=== PATIENT | male | born 1950 | race Caucasian/White ===

== ENCOUNTER 2017-01-06 20:24 | Emergency (ER) | payer MEDICARE, MEDICAID ==
[~2017-01-06] VITALS: Wt 114.5 kg
[~2017-01-06 20:24] MED LIST: AMLO-145 PO; ANUHCSUP PR; CLON0.5T4 PO; COU75 PO; DOCU-103 PO; FLUT1AER IH; PANT40TA3 PO; RISP1TAB3 PO; SIMV20TA2 PO
--- NOTE | 2017-01-06 22:17 | ERA ---
ER Documentation Chief Complaint Date/Time DATE: 01/06/17 TIME: 22:17 Chief Complaint Abdominal pain HPI The patient is a 66-year-old male, presenting to the ER because of diffuse abdominal pain that began about 3 PM today after smoking. The abdominal pain diffuse, no aggravating or relieving factor, not associated with diarrhea, constipation, dysuria. He denies fever, chills, neck pain, chest pain, dyspnea. He smokes, denies drinking, denies illicit drug Past medical history: Asthma, hypertension, schizophrenia, history of DVT, dyslipidemia Past surgical history: Bilateral lower extremity, details unclear ROS All systems reviewed and are negative except as per history of present illness. Medications Home Meds Active Scripts Ibuprofen* (Motrin*) 600 Mg Tab, 600 MG PO Q6H Y for PAIN AND OR ELEVATED TEMP, #30 TAB Prov:MILLIE SIMS MD 01/07/17 Reported Medications Omeprazole* (Omeprazole*) 20 Mg Capsule.dr, 20 MG PO DAILY, #30 CAP 01/07/17 Ergocalciferol (Vitamin D2) (VITAMIN D2) 50,000 Unit Capsule, 85791 UNIT PO, CAP 01/07/17 Amlodipine Besylate* (Amlodipine Besylate*) 5 Mg Tablet, 5 MG PO DAILY, TAB 08/30/14 Warfarin Sodium (Coumadin) 7.5 Mg Tablet, 7.5 MG PO DAILY, TAB 08/30/14 Docusate Sodium (Docusil) 100 Mg Capsule, 100 MG PO TID 08/30/14 Hydrocortisone* Rectal (Anucort-HC* Supp) 25 Mg Supp, 25 MG ND BID, SUPP 08/30/14 Clonazepam* (Clonazepam*) 0.5 Mg Tablet, 0.5 MG PO AM, TAB 08/30/14 Risperidone* (Risperidone*) 1 Mg Tablet, 1 MG PO BID, TAB 08/30/14 Simvastatin (Simvastatin) 20 Mg Tablet, 20 MG PO DAILY, TAB 08/30/14 Discontinued Reported Medications Fluticasone-Vilanterol (Breo Ellipta Inhaler) 100-25 Mcg/Actuation Aer.pow.ba, 1 PUFF IH DAILY, EA 08/30/14 Pantoprazole* (Protonix*) 40 Mg Tablet.dr, 40 MG PO DAILY, TAB 08/30/14 Allergies Allergies: Coded Allergies: haloperidol (Unverified Allergy, Intermediate, 01/07/17) Cephalexin Monohydrate (Unverified Allergy, Unknown, 01/07/17) furosemide (Unverified Allergy, Unknown, 01/07/17) hydrocodone bit (Unverified Allergy, Unknown, 01/07/17) ketorolac tromethamine (Unverified Allergy, Unknown, 01/07/17) meperidine HCl (Unverified Allergy, Unknown, 01/07/17) vancomycin (Unverified Allergy, Unknown, 01/07/17) Haloperidol Lactate (Unverified Adverse Reaction, Intermediate, 01/07/17) PMhx/Soc History of Surgery: No Anesthesia Reaction: No Hx Neurological Disorder: No Hx Respiratory Disorders: Yes (BRONCHIAL ASTHMA) Hx Cardiac Disorders: Yes (HTN,DVT,PE) Hx Psychiatric Problems: Yes (PARANOID,SCHIZOPHRENIA,PSYCHIATRIC DISORDER) Hx Miscellaneous Medical Probl: No Hx Alcohol Use: No Hx Substance Use: No Hx Tobacco Use: No Physical Exam Vitals Vital Signs Date Time Temp Pulse Resp B/P Pulse Ox O2 Delivery O2 Flow Rate FiO2 01/07/17 00:00 99.7 52 24 160/96 98 Room Air 01/06/17 21:48 99.7 70 24 142/76 96 Room Air 01/06/17 20:47 99.7 90 24 167/90 96 Physical Exam Const: No acute distress. Head: Atraumatic. Eyes: Normal Conjunctiva. ENT: Normal External Ears, Nose and Mouth. Neck: Full range of motion. No meningismus. Resp: Clear to auscultation bilaterally. Cardio: Regular rate and rhythm. Abd: Soft, non distended, normal bowel sounds, minimal vague and diffuse abdominal discomfort, no rigidity, rebound, CVA tenderness Skin: No petechiae or rashes. Back: No midline or flank tenderness. Ext: No calf tenderness, chronic discoloration Neur: Awake and alert. No focal deficit Psych: Normal Mood and Affect. Result Diagram: 01/06/17220901/06/172209 Results 24 hrs Laboratory Tests Test 01/06/17 22:10 01/06/17 23:23 White Blood Count 10.710^3/ul Red Blood Count 4.9810^6/ul Hemoglobin 14.7g/dl Hematocrit 42.2% Mean Corpuscular Volume 84.7fl Mean Corpuscular Hemoglobin 29.5pg Mean Corpuscular Hemoglobin Concent 34.8g/dl Red Cell Distribution Width 13.4% Platelet Count 97014^3/UL Mean Platelet Volume 10.5fl Neutrophils % 79.0% Lymphocytes % 12.8% Monocytes % 6.4% Eosinophils % 0.9% Basophils % 0.3% Nucleated Red Blood Cells % 0.0/100WBC Neutrophils # 8.410^3/ul Lymphocytes # 1.410^3/ul Monocytes # 0.710^3/ul Eosinophils # 0.110^3/ul Basophils # 0.010^3/ul Nucleated Red Blood Cells # 0.010^3/ul Sodium Level 145mmol/L Potassium Level 4.2mmol/L Chloride Level 102mmol/L Carbon Dioxide Level 24mmol/L Anion Gap 23 Blood Urea Nitrogen 21mg/dl Creatinine 1.08mg/dl Glucose Level 113mg/dl Calcium Level 10.5mg/dl Total Bilirubin 0.2mg/dl Direct Bilirubin 0.00mg/dl Indirect Bilirubin 0.2mg/dl Aspartate Amino Transf (AST/SGOT) 30IU/L Alanine Aminotransferase (ALT/SGPT) 44IU/L Alkaline Phosphatase 64IU/L Total Protein 8.4g/dl Albumin 4.7g/dl Globulin 3.70g/dl Albumin/Globulin Ratio 1.27 Lipase 87U/L Bedside Urine pH (LAB) 7.0 Bedside Urine Protein (LAB) Negative Bedside Urine Glucose (UA) Negative Bedside Urine Ketones (LAB) Negative Bedside Urine Blood Trace-intact Bedside Urine Nitrite (LAB) Negative Bedside Urine Leukocyte Esterase (L Negative Current Medications Medications (Trade) Dose Ordered Sig/Eric Route PRN Reason Start Time Stop Time Status Last Admin Dose Admin Morphine Sulfate (morphine) 2 mg ONCE ONCE IV 01/07/17 00:00 01/07/17 00:01 DC 01/06/17 23:57 Ondansetron HCl (Zofran Inj) 4 mg ONCE STAT IV 01/06/17 23:44 01/06/17 23:47 DC 01/06/17 23:57 Morphine Sulfate (morphine) 2 mg ONCE ONCE IM 01/07/17 02:00 01/07/17 02:01 Procedures/[place] [id number] Radiology Main Line: [phone] DIAGNOSTIC IMAGING REPORT Patient: ISABEL SHARMA : 1950 Age: 66 Sex: M [id number] DOS: 01/06/17 2235 Ordering MD: MILLIE SIMS MD Location: E/R Room/Bed: PROCEDURE: CT abdomen and pelvis without intravenous contrast. CLINICAL INDICATION: Pain. TECHNIQUE: CT of the abdomen/pelvis was performed utilizing axial images with reconstructions in sagittal and coronal planes. The administered radiation dose is CTDI 21.6 mGy, DLP 1392 mGy-cm. COMPARISON: No pertinent prior examinations were submitted for comparison. FINDINGS: Visualized Chest: There is minimal atelectasis at the lung bases. There is mild cardiomegaly. Coronary artery calcifications are noted. Abdomen: The liver, spleen, pancreas, gallbladder,and adrenal glands are unremarkable. The kidneys are without hydronephrosis. No definite urinary calculi are seen. There is no evidence of bowel obstruction. The appendix is normal. No intra- abdominal free air is seen. Numerous diverticula are noted throughout the colon without evidence of diverticulitis. An inferior vena cava filter is noted. Numerous varices are noted within the anterior abdominal wall, likely due to chronic DVT. The left iliac vein is small in caliber and presumably chronically thrombosed. There is no evidence of intra-abdominal adenopathy or free fluid. Vascular calcifications are noted within the aorta and its branches. Pelvis: There is no evidence of pelvic adenopathy or free fluid. The prostate and bladder are unremarkable. Small bilateral fat containing inguinal hernias are noted. Osseous structures: Unremarkable. IMPRESSION: No acute findings. Colonic diverticulosis. 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 An inferior vena cava filter is in place. Small, bilateral fat containing inguinal hernias. RPTAT: HIKT .Hussein Chamorro MD, Date Time Electronically viewed and signed by .Hussein Chamorro MD, on 01/07/2017 00:57 .T/ CC: MILLIE SIMS MD MEDICAL MAKING DECISION: The patient is a 66-year-old male, presenting to the ER because of acute abdominal pain after smoking of unclear etiology. He has no abdominal tenderness on examination. He was treated with morphine 2 mg IV for pain and Zofran 4 mg IV for nausea with good response. He is requesting a pain shot morphine 2 mg IM was given with good response. I do not suspect any acute abdomen pathology The differential diagnoses considered include but are not limited to cholelithiasis, cholecystitis, cystitis, pancreatitis, hepatitis, gastritis, peptic ulcer disease, gastric ulcer, appendicitis, diverticulitis, cholangitis, choledocholithiasis, partial small bowel obstruction. Departure Diagnosis: Primary Impression: Abdominal pain Condition: Good Comments He was discharged with Motrin I discussed the findings with the patient. I advised the patient to follow-up with the primary physician in the morning for reevaluation, and return if any concern. MILLIE SIMS MD Jan 06, 2017 22:17
[2017-01-06 23:16] LABS: BASOPHILS % 0.3 % (0.0-2.0); EOSINOPHILS # 0.1 10^3/ul (0.0-0.5); EOSINOPHILS % 0.9 % (0.0-7.0); HEMATOCRIT 42.2 % (42.0-52.0); HEMOGLOBIN 14.7 g/dl (14.0-18.0); LYMPHOCYTES # 1.4 10^3/ul (0.8-2.9); LYMPHOCYTES % 12.8 % (15.0-51.0); MEAN CORPUSCULAR HEMOGLOBIN 29.5 pg (29.0-33.0); MEAN CORPUSCULAR HGB CONC 34.8 g/dl (32.0-37.0); MEAN CORPUSCULAR VOLUME 84.7 fl (82.0-101.0); MEAN PLATELET VOLUME 10.5 fl (7.4-10.4); MONOCYTE # 0.7 10^3/ul (0.3-0.9); MONOCYTES % 6.4 % (0.0-11.0); NEUTROPHIL # 8.4 10^3/ul (1.6-7.5); PLATELET COUNT 238 10^3/UL (140-415); RED BLOOD COUNT 4.98 10^6/ul (4.70-6.10); RED CELL DISTRIBUTION WIDTH 13.4 % (11.5-14.5); WHITE BLOOD COUNT 10.7 10^3/ul (4.8-10.8)
[2017-01-06 23:18] LABS: URINE BLOOD (Dip) POC Trace-intact (NEGATIVE)
[2017-01-06 23:28] LABS: ALBUMIN 4.7 g/dl (3.3-4.9); ALBUMIN/GLOBULIN RATIO 1.27; BILIRUBIN,INDIRECT 0.2 mg/dl (0-1.1); BILIRUBIN,TOTAL 0.2 mg/dl (0.2-1.3); CALCIUM 10.5 mg/dl (8.4-10.2); CREATININE 1.08 mg/dl (0.61-1.24); POTASSIUM 4.2 mmol/L (3.5-5.1); TOTAL PROTEIN 8.4 g/dl (6.1-8.1)
[2017-01-06] MEDS ORDERED: ONDANSETRON 4 MG INJ IV STA (23:44)
[2017-01-07] MEDS ORDERED: morphine 2 MG INJ IV ONE
[2017-01-07] MEDS ORDERED: ERGO500037 PO (00:32)
[2017-01-07] MEDS ORDERED: OMEP20CA16 PO (00:35)
--- NOTE | 2017-01-07 00:57 | RADRPT ---
PROCEDURE: CT abdomen and pelvis without intravenous contrast. CLINICAL INDICATION: Pain. TECHNIQUE: CT of the abdomen/pelvis was performed utilizing axial images with reconstructions in s agittal and coronal planes. The administered radiation dose is CTDI 21.6 mGy, DLP 1392 mGy-cm. COMPARISON: No pertinent prior examinations were submitted for comparison. FINDINGS: Visualized Chest: There is minimal atelectasis at the lung bases. There is mild cardiomegaly. Cherri nary artery calcifications are noted. Abdomen: The liver, spleen, pancreas, gallbladder,and adrenal glands are unremarkable. The kidneys are without hydronephrosis. No definite urinary calculi are seen. There is no evidence of bowel obstruction. The appendix is normal. No intra-abdominal free air is seen. Numerous diverticula are noted throughout the colon without evidence of diverticulitis. An inferior vena cava filter is noted. Numerous varices are noted within the anterior abdominal wall , likely due to chronic DVT. The left iliac vein is small in caliber and presumably chronically thr ombosed. There is no evidence of intra-abdominal adenopathy or free fluid. Vascular calcifications are noted within the aorta and its branches. Pelvis: There is no evidence of pelvic adenopathy or free fluid. The prostate and bladder are unremarkable. Small bilateral fat containing inguinal hernias are noted. Osseous structures: Unremarkable. IMPRESSION: No acute findings. Colonic diverticulosis. 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 An inferior vena ca va filter is in place. Small, bilateral fat containing inguinal hernias. RPTAT: HIKT .Hussein Chamorro MD, MD Date Time Electronically viewed and signed by .Hussein Chamorro MD, on 01/07/2017 00:57 .T/
[2017-01-07] MEDS ORDERED: IBUP-1542 PO (01:40)
[2017-01-07] MEDS ORDERED: morphine 10 MG INJ IM ONE (02:00)
[2017-01-07 02:34] VITALS: BP 133/74; PULSE 63; RESP 24; TEMP 99.7
== END 2017-01-07 02:40 | disposition home or self-care (01) ==
LOC: E/R 20:24
DX: R10.84 Generalized abdominal pain (principal); J45.909 Unspecified asthma, uncomplicated; I10 Essential (primary) hypertension; Z79.01 Long term (current) use of anticoagulants
CPT/HCPCS: 36415; 74176; 80053; 81003; 83690; 85025; 96372; 96374; 96375; 99285; J2270; J2405

== ENCOUNTER 2017-11-19 17:48 | Emergency (ER) | END 2017-11-19 21:58 | disposition home or self-care (01) ==